=== PATIENT | male | born 1950 | race African-American/Black ===

== ENCOUNTER 2022-12-17 10:01 | Emergency (ER) | payer OTHER ==
[~2022-12-17] VITALS: Ht 180.3 cm; Wt 102.7 kg
[2022-12-17] MEDS ORDERED: CLOP75TA28 PO (10:48)
[2022-12-17] MEDS ORDERED: EZET10TA22 PO (10:48)
[2022-12-17] MEDS ORDERED: GLIP5TAB12 PO (10:48)
[2022-12-17] MEDS ORDERED: PREG50CA PO ×2 (10:48→10:52)
[2022-12-17] MEDS ORDERED: ATOR80TA PO (10:48)
[2022-12-17] MEDS ORDERED: PANT40TA2 PO (10:48)
[2022-12-17 10:57] VITALS: BP 148/88
== END 2022-12-17 11:01 | disposition home or self-care (01) ==
LOC: ER 10:01
DX: K21.9 Gastro-esophageal reflux disease without esophagitis (principal); E11.9 Type 2 diabetes mellitus without complications; E78.5 Hyperlipidemia, unspecified; F12.10 Cannabis abuse, uncomplicated; Z76.0 Encounter for issue of repeat prescription

== ENCOUNTER 2023-05-03 08:54 | Emergency (ER) | payer OTHER ==
[~2023-05-03] VITALS: Ht 180.3 cm; Wt 105.5 kg
[~2023-05-03 08:54] MED LIST: ATOR80TA PO; CLOP75TA28 PO; EZET10TA22 PO; GLIP5TAB12 PO; PANT40TA2 PO; PREG50CA PO
[2023-05-03 09:33] VITALS: BP 146/80; PULSE 88; RESP 17; TEMP 98.2; O2SAT 98
[2023-05-03] MEDS ORDERED: LIDO5CRE14 EX (11:10)
[2023-05-03] MEDS ORDERED: methylPREDNISolone SOD SUCC 125 MG/2 ML VL IM ONE (11:15)
== END 2023-05-03 11:24 | disposition home or self-care (01) ==
LOC: ER 08:54
DX: M23.91 Unspecified internal derangement of right knee (principal); M54.31 Sciatica, right side; E11.9 Type 2 diabetes mellitus without complications; E78.5 Hyperlipidemia, unspecified; K21.9 Gastro-esophageal reflux disease without esophagitis; Z79.01 Long term (current) use of anticoagulants; Z79.899 Other long term (current) drug therapy; Z88.8 Allergy status to other drugs, medicaments and biological substances
CPT/HCPCS: 73562; 96372; 99283; J2930